=== PATIENT | male | born 1960 | race American Indian/Alaskan Native ===

== ENCOUNTER 2021-01-15 22:15 | Emergency (ER) | payer OTHER ==
[2021-01-15] MEDS ORDERED: SODIUM CHLORIDE 0.9% 1000 ML 1,000 ML IV ONE (23:59)
[2021-01-15] MEDS ORDERED: FAMOTIDINE 20 MG/2 ML INJ IV ONE (23:59)
[2021-01-15] MEDS ORDERED: MORPHINE 4 MG/1 ML INJ IV ONE (23:59)
--- NOTE | 2021-01-16 00:39 | Emergency Department Report ---
ED Abdominal Pain HPI - General Chief Complaint: Abdominal Pain Stated Complaint: RIGHT SIDE ABD PAIN VOMITING DEHYDRATION Source: patient Mode of arrival: Ambulatory Limitations: No Limitations - History of Present Illness Initial Comments: Patient is a 61-year-old -[place] male with a history of hypertension who presents to the ED with complaint of acute onset persistent severe right lower quadrant abdominal pain that radiates to the right flank with nausea and vomiting for the last 4 hours. Patient states that he was at work when he started experiencing the symptoms. Patient states that after 2 episodes of nausea and vomiting he decided come to the ED for evaluation. Patient denies hematuria, dysuria, urinary frequency and urgency, testicular pain, traumatic injury, low back pain, chest pain, shortness of breath, fever, chills, diarrhea, hematemesis, numbness and tingling or weakness of upper and lower extremities bilaterally. MD Complaint: abdominal pain, other (nausea and vomiting) -: Sudden, hour(s) (4) Location: diffuse, RLQ, R flank Radiation: RLQ, R flank Migration to: no migration Severity scale (0 -10): 8 Quality: aching, sharp Consistency: constant Improves With: nothing Worsens With: vomiting, movement Associated Symptoms: denies other symptoms, nausea, vomiting, anorexia. denies: diarrhea, fever, chills, dysuria, hematemesis, hematochezia, melena, hematuria, syncope, other - Related Data Previous Rx's Medication Instructions Recorded Last Taken Type Ketorolac [Toradol] 10 mg PO Q8H PRN #15 tablet 01/16/21 Unknown Rx Ondansetron [Zofran Odt] 4 mg PO Q6HR PRN #20 tab.rapdis 01/16/21 Unknown Rx Tamsulosin [Flomax] 0.4 mg PO QDAY #10 cap 01/16/21 Unknown Rx oxyCODONE /ACETAMINOPHEN [Percocet 1 tab PO Q6HR PRN #12 tablet 01/16/21 Unknown Rx 5/325] Allergies Allergy/AdvReac Type Severity Reaction Status Date / Time No Known Allergies Allergy Verified 01/15/21 23:55 ED Review of Systems ROS: Stated complaint: RIGHT SIDE ABD PAIN VOMITING DEHYDRATION Other details as noted in HPI Constitutional: denies: chills, fever Eyes: denies: eye pain, eye discharge, vision change ENT: denies: ear pain, throat pain Respiratory: denies: cough, shortness of breath, wheezing Cardiovascular: denies: chest pain, palpitations Endocrine: no symptoms reported Gastrointestinal: abdominal pain, nausea, vomiting. denies: diarrhea Genitourinary: denies: urgency, dysuria Musculoskeletal: denies: back pain, joint swelling, arthralgia Skin: denies: rash, lesions Neurological: denies: headache, weakness, paresthesias Psychiatric: denies: anxiety, depression Hematological/Lymphatic: denies: easy bleeding, easy bruising ED Past Medical Hx - Past Medical History Hx Hypertension: Yes - Medications Home Medications: Home Medications Medication Instructions Recorded Confirmed Last Taken Type Ketorolac [Toradol] 10 mg PO Q8H PRN #15 tablet 01/16/21 Unknown Rx Ondansetron [Zofran Odt] 4 mg PO Q6HR PRN #20 tab.rapdis 01/16/21 Unknown Rx Tamsulosin [Flomax] 0.4 mg PO QDAY #10 cap 01/16/21 Unknown Rx oxyCODONE /ACETAMINOPHEN [Percocet 1 tab PO Q6HR PRN #12 tablet 01/16/21 Unknow n Rx 5/325] ED Physical Exam - General Limitations: No Limitations General appearance: alert, in no apparent distress - Head Head exam: Present: atraumatic, normocephalic, normal inspection - Eye Eye exam: Present: normal appearance, PERRL, EOMI Pupils: Present: normal accommodation - ENT ENT exam: Present: normal exam, normal orophraynx, mucous membranes moist, TM's normal bilaterally, normal external ear exam - Neck Neck exam: Present: normal inspection, full ROM - Respiratory Respiratory exam: Present: normal lung sounds bilaterally. Absent: respiratory distress, wheezes, rales, rhonchi, chest wall tenderness, accessory muscle use, decreased breath sounds, prolonged expiratory - Cardiovascular Cardiovascular Exam: Present: regular rate, normal rhythm, normal heart sounds. Absent: systolic murmur, diastolic murmur, rubs, gallop - GI/Abdominal GI/Abdominal exam: Present: soft, tenderness (Palpable right lower quadrant tenderness), normal bowel sounds. Absent: guarding, rebound, hyperactive bowel sounds, hypoactive bowel sounds, organomegaly, mass - Extremities Exam Extremities exam: Present: normal inspection, full ROM, normal capillary refill - Back Exam Back exam: Present: normal inspection, full ROM. Absent: tenderness, CVA tenderness (R), CVA tenderness (L), muscle spasm, paraspinal tenderness, vertebral tenderness - Neurological Exam Neurological exam: Present: alert, oriented X3, CN II-XII intact, normal gait, reflexes normal - Psychiatric Psychiatric exam: Present: normal affect, normal mood - Skin Skin exam: Present: warm, dry, intact, normal color. Absent: rash ED Course Vital Signs 01/15/21 23:56 Temperature 98.2 F Pulse Rate 89 Respiratory 18 Rate Blood Pressure 133/84 [Left] O2 Sat by Pulse 98 Oximetry ED Medical Decision Making - Lab Data Result diagrams: 01/16/21 00:41 01/16/21 00:41 - Radiology Data Radiology results: report reviewed, image reviewed [place] [id number] Cat Scan Report Signed Patient: SHAWN VARGAS MR#: [id number] : 1960 Acct:[id number] Age/Sex: 61 / M ADM Date: 01/15/21 Loc: ED Attending Dr: Ordering Physician: STACIE PEARSON Date of Service: 01/16/21 Procedure(s): CT abdomen pelvis w con Accession Number(s): [id number] cc: STACIE PEARSON CT ABDOMEN AND PELVIS WITH CONTRAST INDICATION: Right lower quadrant pain CONTRAST: 100 cc Omnipaque 300 IV COMPARISON: None available. All CT scans at this location are performed using CT dose reduction for ALARA by means of automated exposure control. FINDINGS: Lung bases are clear of infiltrates. No pneumoperitoneum is seen. Small cyst is seen in the left lobe of the liver. No other masses are seen. Gallbladder and bile ducts appear within normal limits. Appendix appears within normal limits. No evidence of bowel obstruction is seen. Much of the colon is difficult to evaluate due to lack of distention. No inflammatory changes are seen. No lymphadenopathy is noted. Edema is prominent surrounding the kidney and upper right ureter. The right renal collecting system and upper right ureter are mildly dilated. In the upper right ureter at the iliac crest level a 3 mm calculus is seen. IMPRESSION: Upper right ureteral calculus with moderate obstructive change Signer Name: Deshawn Vargas MD Signed: 01/16/2021 2:18 AM Workstation Name: [id number] Transcribed By: DEBORAH Dictated By: Deshawn Vargas MD Electronically Authenticated By: Deshawn Vargas MD Signed Date/Time: 01/16/21217 DD/ 5 TD/TT: - Medical Decision Making This is a 61-year-old -[place] male with a history of hypertension who presents to the ED with complaint of acute onset persistent severe right lower quadrant abdominal pain that radiates to the right flank with nausea and vomiting for the last 4 hours. Patient states that he was at work when he started experiencing the symptoms. Patient states that after 2 episodes of nausea and vomiting he decided come to the ED for evaluation. In the ED, patient is alert and oriented x3 and is not in any distress with normal vital signs. Patient was treated for pain in the ED and also received normal saline 1 L IV bolus x1, as well as antiemetics Zofran. Lab test results were reviewed and showed acute leukocytosis of 11,900 and hyperglycemia of 132 mg/dL. Abdomen pelvis CT scan with contrast showed edema is prominent surrounding the kidney and upper right ureter. The right renal collecting system and upper right ureter are mildly dilated. In the upper right ureter at the iliac crest level a 3 mm calculus is seen. Urinalysis was unremarkable. On reevaluation, patient's pain is well controlled medications. Patient has not had any nausea or vomiting while in the ED. Patient was therefore discharged home on pain medications, antiemetics and Flomax and was given a referral to the urologist Dr. Monteiro in 2 to 3 days for reevaluation. Patient was advised to contact Dr. Monteiro's office today January 16, 2021 to schedule a follow-up appointment. Patient was advised to return to the ED immediately if symptoms get worse. - Differential Diagnosis Appendicitis; Kidney stones; UTI; Colitis; Crohn's disease Critical care attestation.: If time is entered above; I have spent that time in minutes in the direct care of this critically ill patient, excluding procedure time. ED Disposition Clinical Impression: Acute abdominal pain in right lower quadrant, Nausea and vomiting in adult patient, Kidney stone on right side Disposition: HOME / SELF CARE / HOMELESS Is pt being admited?: No Does the pt Need Aspirin: No Condition: Stable Instructions: Renal Colic, [id number], Kidney Stones, [id number], Nausea and Vomiting, Adult, [id number], Abdominal Pain, Adult, [id number] Additional Instructions: All lab test results were reviewed and are all nonactionable except for mild leukocytosis of 11,900. Abdomen pelvis CT scan with contrast showed upper right ureteral calculus with moderate obstructive change. Therefore take medication with food, drink plenty of fluids and follow-up with the urologist Dr. Monteiro in 2 to 3 days for reevaluation. Contact Dr. Monteiro's office first thing today in the morning January 16, 2021 to schedule a follow-up appointment. Return to the ED immediately if symptoms get worse. Prescriptions: Tamsulosin [Flomax] 0.4 mg PO QDAY #10 cap oxyCODONE /ACETAMINOPHEN [Percocet 5/325] 1 tab PO Q6HR PRN #12 tablet PRN Reason: Pain Ketorolac [Toradol] 10 mg PO Q8H PRN #15 tablet PRN Reason: Pain Ondansetron [Zofran Odt] 4 mg PO Q6HR PRN #20 tab.rapdis PRN Reason: Nausea Referrals: MYLENE MONTEIRO MD [Staff Physician] - 3-5 Days Forms: Work/School Release Form(ED) Time of Disposition: 00:39 Print Language: CAMEROONIAN
[2021-01-16 01:16] LABS: Basophils % (Auto) 0.2 % (0.0-1.8); Hematocrit 41.9 % (35.5-45.6); Hemoglobin 14.7 gm/dl (11.8-15.2); Lymphocytes # (Auto) 0.8 K/mm3 (1.2-5.4); Lymphocytes % (Auto) 6.7 % (13.4-35.0); Mean Corpuscular HGB Conc 35 % (32-34); Mean Corpuscular Volume 97 fl (84-94); Monocytes # (Auto) 0.7 K/mm3 (0.0-0.8); Monocytes % (Auto) 6.2 % (0.0-7.3); Platelet Count 284 K/mm3 (140-440); Red Blood Count 4.34 M/mm3 (3.65-5.03); Red Cell Distribution Width 12.4 % (13.2-15.2)
[2021-01-16 01:21] LABS: Alanine Aminotransferase 16 units/L (7-56); Albumin 4.9 g/dL (3.9-5); BUN/Creatinine Ratio 11; Blood Urea Nitrogen 13 mg/dL (9-20); Calcium 9.7 mg/dL (8.4-10.2); Hemolysis Index 5
[2021-01-16] MEDS ORDERED: MORPHINE 4 MG/1 ML INJ ONE (02:09)
[2021-01-16] MEDS ORDERED: FAMOTIDINE 20 MG/2 ML INJ IV ONE (02:12)
--- NOTE | 2021-01-16 02:23 | Cat Scan Report ---
CT ABDOMEN AND PELVIS WITH CONTRAST INDICATION: Right lower quadrant pain CONTRAST: 100 cc Omnipaque 300 IV COMPARISON: None available. All CT scans at this location are performed using CT dose reduction for ALARA by means of automated e xposure control. FINDINGS: Lung bases are clear of infiltrates. No pneumoperitoneum is seen. Small cyst is seen in the left lobe of the liver. No other masses are seen. Gallbladder and bile ducts appear within normal li mits. Appendix appears within normal limits. No evidence of bowel obstruction is seen. Much of the co erick is difficult to evaluate due to lack of distention. No inflammatory changes are seen. No lymphade nopathy is noted. Edema is prominent surrounding the kidney and upper right ureter. The right renal collecting system a nd upper right ureter are mildly dilated. In the upper right ureter at the iliac crest level a 3 mm c alculus is seen. IMPRESSION: Upper right ureteral calculus with moderate obstructive change Signer Name: Deshawn Vargas MD Signed: 01/16/2021 2:18 AM Workstation Name: [id number]
[2021-01-16] MEDS ORDERED: TAMSULOSIN 0.4 MG CAP PO ONE (02:32)
[2021-01-16] MEDS ORDERED: KETOROLAC 30 MG/1 ML INJ IV ONE (02:32)
[2021-01-16 04:43] LABS: Bilirubin,Urine NEG (Negative); Blood,Urine LG (Negative); Color,Urine Straw (Yellow); Protein,Urine <15 mg/dL mg/dL (Negative); Urobilinogen,Urine < 2.0 mg/dL (<2.0)
[2021-01-16 05:49] VITALS: BP 148/92
== END 2021-01-16 05:53 | disposition home or self-care (01) ==
LOC: ED 22:15
DX: N20.0 Calculus of kidney (principal); R10.31 Right lower quadrant pain; R11.2 Nausea with vomiting, unspecified; I10 Essential (primary) hypertension
CPT/HCPCS: 36415; 74177; 80053; 81001; 83690; 85025; 96361; 96374; 96375; 99284; J1885; J2270; J7030; Q9967